=== PATIENT | female | born 1965 | race Caucasian/White ===

== ENCOUNTER 2024-04-23 01:23 | Day surgery (SDC) | payer BC, SELFPAY ==
[2024-04-09 11:46] VITALS: BMI 42.6
--- NOTE | 2024-04-22 15:33 | WPDANESEPPF ---
Anes - Initial Pre Proc Eval Procedure: Operation Date: 04/23/24 07:30 Proposed Procedures p Screening Colonoscopy - Nghia Velazco MD Date/Time: 04/22/24 15:33 Surgeon: Nghia Velazco MD Pre Op Diagnosis: screening malignant neoplasm colon Patient Data Age: 58 Gender: F Height: 1.73 m Weight: 127.3 kg Allergies Allergy/AdvReac Type Severity Reaction Status Date / Time No Known Allergies Allergy Verified 04/23/24 06:13 Home Medications ?Medication ?Instructions ?Recorded ?Confirmed ?Type cholecalciferol (vitamin D3) 25 25 mcg PO DAILY 03/19/22 04/23/24 History mcg (1,000 unit) capsule multivitamin (Daily Multi-Vitamin 1 tablet PO DAILY 03/19/22 04/23/24 History tablet) vitamin B complex (B 1 tablet PO DAILY 03/19/22 04/23/24 History Complex-Vitamin B12 tablet) loratadine 10 mg tablet (Claritin) 10 mg PO DAILY 05/21/23 04/23/24 History ipratropium 0.5 mg-albuterol 3 mg 3 ml inhalation Q4H PRN wheezing 06/06/23 04/09/24 Rx (2.5 mg base)/3 mL nebulization #90 mL soln albuterol sulfate 90 mcg/actuation See Rx Instructions .Route 04/02/24 04/09/24 Rx aerosol inhaler .COMPLEX #8.5 grams metformin 500 mg tablet 500 mg PO DAILY #90 tabs 04/02/24 04/23/24 Rx propranolol 120 mg capsule,24 120 mg PO DAILY #90 caps 04/02/24 04/23/24 Rx hr,extended release levothyroxine 150 mcg tablet 150 mcg PO DAILY #90 tabs 04/03/24 04/23/24 Rx Patient hx anesthesia problems: none Family hx anesthesia problems: none Results Review: All pre-operative results and documents have been reviewed as part of the pre-operative evaluation. [facility] Past Medical History Medical History (Updated 04/22/24 @ 15:34 by Juan Carlos Kenney DO) Hypothyroid Diabetes mellitus Migraines Social History Social History Social History: Pt is very confident in filling out medical forms. Pt has not received assistance in the last 12 months. Smoking status: Never smoker Alcohol intake: current Alcohol use details: social Substance use: never Do You Feel Safe in your Home?: Yes Lack of Transportation: No Lack of Food: Never True Current Housing: I Have Housing Concerned About Future Housing: No Difficulty Paying Gas/Electric Bills: No Difficulty Paying for Meds: No Currently Unemployed: No Education: Master's Degree or Higher Difficulty w/ Childcare or Family Care: No Living arrangements: alone Occupation/Education: occupation Gender identity (if verbalized by the patient): Female Spiritual care concerns: No Anes - Eval Final PreProcedure Day of Procedure 04/22/24 15:33 Patient weight: morbidly obese Heart: regular rate and rhythm Lungs: clear to auscultation Airway: Mallampati scale class II Neurological: alert and oriented Last oral intake: >/= 8 hours ASA classification: III Emergent: no Anesthetic plan: proceed Anesthesia type and monitoring: general GIVS and standard monitoring Results Review: All pre-operative results and documents have been reviewed as part of the pre-operative evaluation. Informed Consent: The patient's anesthetic plan and its attendant risks and benefits were discussed with the patient/family/POA. Questions were solicited and answers provided to the satisfaction of the patient/family/POA.
[2024-04-23 06:16] VITALS: BP 140/100; PULSE 78; RESP 20; TEMP 36.3; O2SAT 97; BMI 43.3
[2024-04-23] MEDS: LACTATED RINGERS 1,000 ML 150 ML IV CONT (06:19)
[2024-04-23 06:29] LABS: Glucose Point of Care 172 mg/dl (65-105)
--- NOTE | 2024-04-23 07:31 | PM.HPGS ---
History of Present Illness History of Present Illness Consent: Risks, benefits, and alternatives have been discussed and questions answered. Patient agrees to proceed with procedure. Chief complaint: screening malignant neoplasm colon Narrative: Rebeca Espinoza is a 58 year old female with colon polyp 3 years ago Review of Systems Review of Systems: All systems reviewed & are unremarkable except as noted in HPI and below PMFSH Past Medical History Medical History (Updated 04/23/24 @ 07:32 by Nghia Velazco MD) Colon polyp Hypothyroid Diabetes mellitus Migraines Social History Social History Social History: Pt is very confident in filling out medical forms. Pt has not received assistance in the last 12 months. Smoking status: Never smoker Alcohol intake: current Alcohol use details: social Substance use: never Do You Feel Safe in your Home?: Yes Lack of Transportation: No Lack of Food: Never True Current Housing: I Have Housing Concerned About Future Housing: No Difficulty Paying Gas/Electric Bills: No Difficulty Paying for Meds: No Currently Unemployed: No Education: Master's Degree or Higher Difficulty w/ Childcare or Family Care: No Living arrangements: alone Occupation/Education: occupation Gender identity (if verbalized by the patient): Female Spiritual care concerns: No Meds Home Medications and Allergies Home Medications ?Medication ?Instructions ?Recorded ?Confirmed ?Type cholecalciferol (vitamin D3) 25 25 mcg PO DAILY 03/19/22 04/23/24 History mcg (1,000 unit) capsule multivitamin (Daily Multi-Vitamin 1 tablet PO DAILY 03/19/22 04/23/24 History tablet) vitamin B complex (B 1 tablet PO DAILY 03/19/22 04/23/24 History Complex-Vitamin B12 tablet) loratadine 10 mg tablet (Claritin) 10 mg PO DAILY 05/21/23 04/23/24 History ipratropium 0.5 mg-albuterol 3 mg 3 ml inhalation Q4H PRN wheezing 06/06/23 04/09/24 Rx (2.5 mg base)/3 mL nebulization #90 mL soln albuterol sulfate 90 mcg/actuation See Rx Instructions .Route 04/02/24 04/09/24 Rx aerosol inhaler .COMPLEX #8.5 grams metformin 500 mg tablet 500 mg PO DAILY #90 tabs 04/02/24 04/23/24 Rx propranolol 120 mg capsule,24 120 mg PO DAILY #90 caps 04/02/24 04/23/24 Rx hr,extended release levothyroxine 150 mcg tablet 150 mcg PO DAILY #90 tabs 04/03/24 04/23/24 Rx Allergies Allergy/AdvReac Type Severity Reaction Status Date / Time No Known Allergies Allergy Verified 04/23/24 06:13 Vital Signs Vital Signs - 24 hr 04/23/24 06:16 Temperature 97.4 F L Pulse Rate 78 Respiratory Rate 20 Blood Pressure 140/100 H Pulse Oximetry 97 Oxygen Delivery Room Air Exam Const: General: comfortable and no acute distress HENMT: Face/Nose/Sinus: Normal nares present Eyes: General: appearance normal, both eyes and all related structures Neck: Neck: no JVD Resp: Auscultation: clear to auscultation bilaterally Cardio: Rate: regular rate Rhythm: regular rhythm GI: Inspection: non-distended GI Palp: Yes Soft to palpation Skin: General skin exam: normal color Neuro: General: gait normal Speech: normal speech Extrem: General: normal to inspection Psych: Mental Status: mental status grossly normal Assessment and Plan Assessment and plan (1) Colon polyp: Code(s): K63.5 - Polyp of colon Status: Acute Assessment and Plan: colonoscopy
[2024-04-23 07:45] VITALS: BP 108/53; PULSE 76; RESP 21; O2SAT 95
[2024-04-23 07:55] VITALS: BP 110/69; PULSE 75; RESP 21; O2SAT 95
[2024-04-23 08:05] VITALS: BP 98/61; PULSE 73; RESP 16; O2SAT 99
== END 2024-04-23 08:18 | disposition home or self-care (01) ==
PROVIDERS: PCP Nurse Practitioner Family; Visit Provider Internal Medicine Gastroenterology
PROC: 0DJD8ZZ Inspection of Lower Intestinal Tract, Via Natural or Artificial Opening Endoscopic (ICD-10-PCS; CPT 45378; principal; 2024-04-23 07:30)
DX: Z12.11 Encounter for screening for malignant neoplasm of colon (principal); D12.2 Benign neoplasm of ascending colon; K57.30 Diverticulosis of large intestine without perforation or abscess without bleeding; E11.9 Type 2 diabetes mellitus without complications; Z79.84 Long term (current) use of oral hypoglycemic drugs; E66.01 Morbid (severe) obesity due to excess calories; Z68.41 Body mass index [BMI] 40.0-44.9, adult
CPT/HCPCS: 45385; 82948; 88305; J2003; J2704; J7120